=== PATIENT | female | born 1925 | race Caucasian/White ===

== ENCOUNTER 2016-12-01 18:22 | Emergency (ER) | payer OTHER, MEDICARE, BC | END 2016-12-01 20:39 | disposition home or self-care (01) | LOC: ER 18:22 | DX: S42.001A Fracture of unspecified part of right clavicle, initial encounter for closed fracture (principal); F03.90 Unspecified dementia, unspecified severity, without behavioral disturbance, psychotic disturbance, mood disturbance, and anxiety; G43.909 Migraine, unspecified, not intractable, without status migrainosus; D64.9 Anemia, unspecified; Z90.710 Acquired absence of both cervix and uterus; Z79.899 Other long term (current) drug therapy; Z79.82 Long term (current) use of aspirin; W18.30XA Fall on same level, unspecified, initial encounter ==